=== PATIENT | female | born 1950 | race Caucasian/White ===

== ENCOUNTER 2017-08-16 06:19 | Day surgery (SDC) | payer MEDICARE, OTHER ==
--- NOTE | 2017-08-16 07:22 | PCM.PREANE ---
Preanesthetic Assessment - Anesthesia/Transfusion/Family Hx Anesthesia History: Prior Anesthesia Without Reaction Other Type of Anesthesia Reaction Comment: Denies any known problem in past Family History of Anesthesia Reaction: No Transfusion History: No Prior Transfusion(s) - Review of Systems General: No Symptoms Pulmonary: No Symptoms Cardiovascular: No Symptoms Gastrointestinal: No Symptoms Neurological: No Symptoms Other: Reports: None - Physical Assessment NPO Status Date: 08/15/17 NPO Status Time: 22:00 O2 Sat by Pulse Oximetry: 95 Respiratory Rate: 16 Vital Signs: Last Vital Signs Temp 36.3 C 08/16/17 06:30 Pulse 67 08/16/17 06:30 Resp 16 08/16/17 06:30 BP 150/76 H 08/16/17 06:30 Pulse Ox 95 08/16/17 06:30 Height: 1.63 m Weight: 73.936 kg ASA Class: 1 Mental Status: Alert & Oriented x3 Airway Class: Mallampati = 1 ROM/Head Extension: Full Lungs: Clear to Auscultation, Normal Respiratory Effort Cardiovascular: Regular Rate, Regular Rhythm - Allergies Allergies/Adverse Reactions: Allergies Allergy/AdvReac Type Severity Reaction Status Date / Time Sulfa (Sulfonamide Allergy Hives Verified 08/14/17 12:46 Antibiotics) sulfamethoxazole Allergy Hives Verified 08/14/17 12:46 [From Bactrim] trimethoprim [From Bactrim] Allergy Hives Verified 08/14/17 12:46 Bandaids Allergy Itching Uncoded 01/28/15 10:07 Dairy Allergy Indigestion Uncoded 01/28/15 10:07 Latex Allergy Itching Uncoded 01/28/15 10:07 - Anesthesia Plan Pre-Op Medication Ordered: None - Acknowledgements Anesthesia Type Planned: MAC Pt an Appropriate Candidate for the Planned Anesthesia: Yes Alternatives and Risks of Anesthesia Discussed w Pt/Guardian: Yes Pt/Guardian Understands and Agrees with Anesthesia Plan: Yes PreAnesthesia Questionnaire Other HEENT History: wears glasses 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 OB/BYN History: Laparoscopic procedure for ovarian Cyst Other Musculoskeletal History: Current pain to Left Knee - Past Surgical History Female Surgical History: Reports: Other (See Below) Other Female Surgeries/Procedures: laparoscopic drainage of ovarian abscess Musculoskeletal Surgical History: Reports: Arthroscopic Knee - SUBSTANCE USE Smoking Status *Q: Never Smoker Recreational Drug Use History: No - HOME MEDS Home Medications: Home Meds Multivitamin [Multi-Vitamin Daily] 1 tab PO DAILY 01/28/15 [History] - CURRENT (IN HOUSE) MEDS Current Meds: Current Medications Bupivacaine HCl/Epinephrine Bitart (Marcaine 0.25%/Epinephrine 1:200,000) 10 ml INJECT ONETIME ONE Stop: 08/16/17 08:01 Cefazolin Sodium/Dextrose 2 gm (/ Premix) 50 mls @ 100 mls/hr IV ONETIME ONE Stop: 08/16/17 08:29 Lactated Ringer's (Ringers, Lactated) 1,000 mls @ 125 mls/hr IV ASDIRECTED [facility] Tramadol HCl (Ultram) 50 mg PO Q4H PRN PRN Reason: Pain
[2017-08-16] MEDS ORDERED: Lidocaine 2% 5 ML SDV ONE (07:24)
[2017-08-16] MEDS ORDERED: Midazolam 1 MG/ML 2 ML SDV ONE (07:24)
[2017-08-16] MEDS ORDERED: Propofol 200 MG/20 ML SDV ONE (07:24)
[2017-08-16] MEDS ORDERED: fentaNYL 100 MCG/2 ML SDV ONE (07:24)
[2017-08-16] MEDS ORDERED: Tetracaine 0.5% Ophth Soln 15 ML Bottle ONE (07:28)
[2017-08-16] MEDS ORDERED: Bupivacaine 25%/EPINEPHrine/PF 30 ML ONE (07:28)
[2017-08-16] MEDS ORDERED: Ondansetron 4 MG/2 ML SDV ONE (07:28)
[2017-08-16] MEDS ORDERED: Dexamethasone/Tobramycin 0.1-0.3% Ophth Oint 3.5 GM Tube ONE (07:28)
[2017-08-16] MEDS ORDERED: ceFAZolin 2 GM in Premix Bag 1 BAG IV ONE (08:00)
[2017-08-16] MEDS ORDERED: Lactated Ringers 1,000 ML IV SCH (08:00)
[2017-08-16] MEDS ORDERED: traMADol 50 MG Tab PO PRN (08:00)
[2017-08-16] MEDS ORDERED: Bupivacaine 0.25%/EPINEPHrine 1:200,000 10 ML SDV INJECT ONE (08:00)
--- NOTE | 2017-08-16 10:43 | PCM.POSTAN ---
POST ANESTHESIA ASSESSMENT - MENTAL STATUS Mental Status: Alert, Oriented - RESPIRATORY Respiratory Status: Respiratory Rate WNL, Airway Patent, O2 Saturation Stable - CARDIOVASCULAR CV Status: Pulse Rate WNL, Blood Pressure Stable - GASTROINTESTINAL GI Status: No Symptoms - POST OP HYDRATION Hydration Status: Adequate & Stable
--- NOTE | 2017-08-16 10:44 | PCM48HPAN ---
Post Anesthesia Note - EVALUATION WITHIN 48HRS OF ANESTHETIC Vital Signs in Normal Range: Yes Patient Participated in Evaluation: Yes Respiratory Function Stable: Yes Airway Patent: Yes Cardiovascular Function Stable: Yes Hydration Status Stable: Yes Pain Control Satisfactory: Yes Nausea and Vomiting Control Satisfactory: Yes Mental Status Recovered: Yes Resp Rate: 11
[2017-08-16 10:51] VITALS: BP 131/73
--- NOTE | 2017-08-16 17:14 | PCM.OPNOTE ---
- General Post-Op/Procedure Note Date of Surgery/Procedure: 08/16/17 Operative Procedure(s): bilateral upper lid blepahroplasty for excess skin Pre Op Diagnosis: dermatochalasis bilateral Post-Op Diagnosis: Same Anesthesia Technique: Local, MAC Primary Surgeon: Yamilka Morris Walnut Dehydrator Operator: Verito Vick Complications: None Condition: Good Free Text/Narrative:: Intake & Output 08/16/17 08/16/17 08/16/17 07:59 15:59 23:59 Intake Total 800 Balance 800
--- NOTE | 2017-08-17 17:29 | OR ---
SURGEON: KARLENE JOSHUA MD DATE OF PROCEDURE: 08/16/2017 PREOPERATIVE DIAGNOSIS: Bilateral upper lid dermatochalasis. POSTOPERATIVE DIAGNOSIS: Bilateral upper lid dermatochalasis causing visual obstruction. PROCEDURE: Bilateral upper lid blepharoplasty for excess skin weighing down lids. STUDENT UNION CONSULTANT: OMID Loredo REASON STUDENT UNION CONSULTANT WAS NECESSARY: Reason for pastry assistant is prepping, draping, and closure assistance. ANESTHESIA: Local MAC. INDICATIONS: Ms. Ojeda is a 66-year-old female who has excess upper eyelid skin that is causing visual obstruction with a decreased MRD and visual compromise demonstrated on photos and visual field testing. Risks and benefits of bilateral upper lid blepharoplasty for excess skin were discussed and she was in agreement to proceed. Risks were including, but not limited to, bleeding, infection, damage to underlying or overlying structures, possible need for future interventions, possible scarring. PROCEDURE IN DETAIL: After informed consent was obtained and placed on the chart, the patient was brought to the operating theater and laid in supine position. After adequate local MAC anesthesia was obtained, the area was prepped and draped and a time- out was completed to confirm side and site. The area was then marked and confirmed. Standard excision using calipers were measured. Once adequately marked, the area was anesthetized with 0.25% Marcaine with epinephrine in a field block. Attention was then paid to removal of the skin and meticulous hemostasis using Bovie electrocautery. Once adequately excised, the wounds were then closed with a single deep Monocryl stitch and a running 6-0 Prolene for the skin. The patient tolerated the procedure well. All counts and needles were correct at the end of the case. Steri-Strips were used to secure the suture ends in place. FOLLOWUP INSTRUCTIONS: The patient will see us in 1 week, sooner if any problems, questions, or concerns. She was given a prescription for pain control, but otherwise will use [id number] medications. HEGGTHE / HENNAL /[id number]
== END 2017-08-16 10:10 | disposition home or self-care (01) ==
LOC: MW.SDS 06:19
PROVIDERS: ATTEND Plastic Surgery
DX: H02.831 Dermatochalasis of right upper eyelid (principal); H02.834 Dermatochalasis of left upper eyelid; Z88.2 Allergy status to sulfonamides; Z88.8 Allergy status to other drugs, medicaments and biological substances; Z91.011 Allergy to milk products; Z79.899 Other long term (current) drug therapy
CPT/HCPCS: 15823; A9270; J2250; J2405; J3010; 00103; J2704

== ENCOUNTER 2020-11-12 11:34 | Emergency (ER) | payer MEDICARE, OTHER ==
--- NOTE | 2020-11-12 11:40 | EDM.PDOC ---
ED HPI GENERAL MEDICAL PROBLEM - General Stated Complaint: BLOOD PRESSURE Time Seen by Provider: 11/12/20 11:35 Source of Information: Reports: Patient History Limitations: Reports: No Limitations - History of Present Illness INITIAL COMMENTS - FREE TEXT/NARRATIVE: 70-year-old female presents for hypertension. Patient is not currently on any antihypertensives. She states that last night she developed a mild bilateral frontal headache. She took an Advil cold and sinus and went to bed. She woke up this morning and noticed headache was worsening. Took another advil cold/sinus. It is gradually worsened throughout the morning. It is not the worst headache of her life. It is not associated with vision changes, shortness of breath, chest pain, one-sided weakness, word finding difficulty, facial droop. She has had some nausea without vomiting. She took her blood pressure and noted it to be elevated with a systolic in the 180s which is abnormal for her prompting her to seek medical attention. 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 ED EXAM, GENERAL - Physical Exam Exam: See Below Exam Limited By: No Limitations General Appearance: Alert, WD/WN, No Apparent Distress Eye Exam: Bilateral Eye: EOMI, PERRL Throat/Mouth: Normal Voice, No Airway Compromise Head: Atraumatic, Normocephalic Neck: Normal Inspection Respiratory/Chest: No Respiratory Distress, Lungs Clear, Normal Breath Sounds, No Accessory Muscle Use Cardiovascular: Normal Peripheral Pulses, Regular Rate, Rhythm, No Edema Extremities: Normal Inspection Neurological: Alert, Oriented, CN II-XII Intact, Normal Cognition, No Motor/Sensory Deficits, Other (normal [id number] b/l) Psychiatric: Normal Affect, Normal Mood Skin Exam: Warm, Dry, Intact, Normal Color #1 Interpretation EKG Date: 11/12/20 Time: 11:34 Rhythm: NSR Rate (Beats/Min): 89 Thor: Normal P-Wave: Present QRS: Normal ST-T: Normal QT: Normal AR/PQ Interval: 224 Comparison: NA - No Prior EKG EKG Interpretation Comments: no overt ischemic changes Course - Vital Signs Last Recorded V/S: Last Vital Signs Temp 97 F 11/12/20 11:46 Pulse 96 11/12/20 11:46 Resp 16 11/12/20 11:46 BP 190/111 H 11/12/20 11:46 Pulse Ox 95 11/12/20 11:46 - Orders/Labs/Meds Orders: Active Orders 24 hr Category Date Time Status EKG Documentation Completion [RC] STAT Care 11/12/20 11:50 Active Ang Head [CT] Stat Exams 11/12/20 11:51 Taken Ang Neck [CT] Stat Exams 11/12/20 11:51 Taken Head wo Cont [CT] Stat Exams 11/12/20 11:51 Taken Sodium Chloride 0.9% [Saline Flush] Med 11/12/20 11:50 Active 10 ml FLUSH ASDIRECTED PRN Sodium Chloride 0.9% [Saline Flush] Med 11/12/20 11:50 Active 2.5 ml FLUSH ASDIRECTED PRN Saline Lock Insert [OM.PC] Stat Oth 11/12/20 11:50 Ordered Medication Orders Sodium Chloride (Sodium Chloride 0.9% 10 Ml Syringe) 10 ml FLUSH ASDIRECTED PRN PRN Reason: Keep Vein Open Last Admin: 11/12/20 12:01 Dose: 10 ml Documented by: [facility] [place], [place] Sodium Chloride (Sodium Chloride 0.9% 2.5 Ml Syringe) 2.5 ml FLUSH ASDIRECTED PRN PRN Reason: Keep Vein Open Last Admin: 11/12/20 12:01 Dose: 2.5 ml Documented by: ASHWINI Labs: Laboratory Tests 11/12/20 11/12/20 Range/Units 11:45 11:45 WBC 15.36 H (4.0-11.0) K/uL RBC 4.75 (4.30-5.90) M/uL Hgb 14.2 (12.0-16.0) g/dL Hct 40.7 (36.0-46.0) % MCV 85.7 (80.0-98.0) fL MCH 29.9 (27.0-32.0) pg MCHC 34.9 (31.0-37.0) g/dL RDW Std Deviation 42.6 (28.0-62.0) fl RDW Coeff of Shay 14 (11.0-15.0) % Plt Count 253 (150-400) K/uL MPV 9.80 (7.40-12.00) fL Neut % (Auto) 93.2 H (48.0-80.0) % Lymph % (Auto) 4.8 L (16.0-40.0) % [place] % (Auto) 2.0 (0.0-15.0) % Eos % (Auto) 0.0 (0.0-7.0) % Baso % (Auto) 0.0 (0.0-1.5) % Neut # (Auto) 14.3 H (1.4-5.7) K/uL Lymph # (Auto) 0.7 (0.6-2.4) K/uL [place] # (Auto) 0.3 (0.0-0.8) K/uL Eos # (Auto) 0.0 (0.0-0.7) K/uL Baso # (Auto) 0.0 (0.0-0.1) K/uL Nucleated RBC % 0.0 /100WBC Nucleated RBCs # 0 K/uL Sodium 130 L (136-145) mmol/L Potassium 3.9 (3.5-5.1) mmol/L Chloride 95 L (98-107) mmol/L Carbon Dioxide 24.8 (21.0-32.0) mmol/L BUN 29 H (7.0-18.0) mg/dL Creatinine 0.8 (0.6-1.0) mg/dL Est Cr Clr Drug Dosing 55.70 mL/min Estimated GFR (MDRD) > 60.0 ml/min Glucose 158 H (74-106) mg/dL Calcium 9.3 (8.5-10.1) mg/dL Total Bilirubin 0.6 (0.2-1.0) mg/dL AST 21 (15-37) IU/L ALT 24 (14-63) IU/L Alkaline Phosphatase 147 H (46-116) U/L Troponin I < 0.050 (0.000-0.056) ng/mL Total Protein 7.7 (6.4-8.2) g/dL Albumin 3.8 (3.4-5.0) g/dL Globulin 3.9 (2.6-4.0) g/dL Albumin/Globulin Ratio 1.0 (0.9-1.6) Meds: Medications Generic Name Dose Route Start Last Admin Trade Name Warrenq PRN Reason Stop Dose Admin Sodium Chloride 10 ml 11/12/20 11:50 11/12/20 12:01 Sodium Chloride 0.9% 10 Ml Syringe FLUSH 10 ml ASDIRECTED PRN Administration Keep Vein Open Sodium Chloride 2.5 ml 11/12/20 11:50 11/12/20 12:01 Sodium Chloride 0.9% 2.5 Ml Syringe FLUSH 2.5 ml ASDIRECTED PRN Administration Keep Vein Open Discontinued Medications Generic Name Dose Route Start Last Admin Trade Name Anusha PRN Reason Stop Dose Admin Acetaminophen 1,000 mg 11/12/20 11:52 11/12/20 12:01 Acetaminophen 500 Mg Tab PO 11/12/20 11:53 1,000 mg ONETIME ONE Administration Diphenhydramine HCl 50 mg 11/12/20 11:50 11/12/20 12:01 Diphenhydramine 50 Mg/Ml Sdv IVPUSH 11/12/20 11:51 50 mg ONETIME ONE Administration Metoclopramide HCl 10 mg 11/12/20 11:50 11/12/20 12:01 Metoclopramide 10 Mg/2 Ml Sdv IVPUSH 11/12/20 11:51 10 mg ONETIME ONE Administration - Re-Assessments/Exams Free Text/Narrative Re-Assessment/Exam: 11/12/20 11:54 We will get basic labs. Will get CT imaging of the head as well as CTA of the head and neck. Will give medication to treat headache. Will recheck blood pressure and consider antihypertensives. 1413: CT imaging of head/neck are unremarkable. BP is now 141/79 after treating ROBERTS. Will f/u labs and disposition. 1423: Labs grossly unremarkable. Will discharge patient with PMD follow-up for further work-up and management. Departure - Departure Time of Disposition: 14:23 Disposition: Home, Self-Care 01 Condition: Good Clinical Impression: Headache Qualifiers: Headache type: unspecified Headache chronicity pattern: acute headache Intractability: not intractable Qualified Code(s): R51.9 - Headache, unspecified Hypertension Qualifiers: Hypertension type: unspecified Qualified Code(s): I10 - Essential (primary) hypertension - Discharge Information Instructions: Hypertension, Adult, General Headache Without Cause, [id number] Referrals: Twan Arguello MD [Primary Care Provider] - Additional Instructions: Your labs are grossly unremarkable. Your CT imaging of your head is unremarkable. I recommend checking your blood pressure regularly and following up with your primary care physician to discuss whether or not you need to be on any antihypertensive medications. If you develop worst headache of your life, chest pain, difficulty breathing, slurred speech, one-sided weakness or any other new or concerning symptoms you are encouraged to return to the emergency department for reassessment. The following information is given to patients seen in the emergency department who are being discharged to home. This information is to outline your options for follow-up care. We provide all patients seen in our emergency department with a follow-up referral. The need for follow-up, as well as the timing and circumstances, are variable depending upon the specifics of your emergency department visit. If you don't have a primary care physician on staff, we will provide you with a referral. We always advise you to contact your personal physician following an emergency department visit to inform them of the circumstance of the visit and for follow-up with them and/or the need for any referrals to a consulting specialist. The emergency department will also refer you to a specialist when appropriate. This referral assures that you have the opportunity for follow-up care with a sp ecialist. All of these measure are taken in an effort to provide you with optimal care, which includes your follow-up. Under all circumstances we always encourage you to contact your private physicia n who remains a resource for coordinating your care. When calling for follow-up care, please make the office aware that this follow-up is from your recent emergency room visit. If for any reason you are refused follow-up, please contact the [facility] Emergency Department at and asked to speak to the emergency department charge nurse. Please follow up with your primary care physician. If you do not have a primary care physician, see below: [facility] [address] [place] [address] [id number] My [facility] [address] [place] [address] [facility] [address] [place] [id number] Sepsis Event Note (ED) - Focused Exam Vital Signs: Vital Signs Temp Pulse Resp BP Pulse Ox 11/12/20 11:46 97 F 96 16 190/111 H 95 - My Orders Last 24 Hours: My Active Orders 11/12/20 11:50 EKG Documentation Completion [RC] STAT Sodium Chloride 0.9% [Saline Flush] 10 ml FLUSH ASDIRECTED PRN Sodium Chloride 0.9% [Saline Flush] 2.5 ml FLUSH ASDIRECTED PRN Saline Lock Insert [OM.PC] Stat 11/12/20 11:51 Ang Head [CT] Stat Ang Neck [CT] Stat Head wo Cont [CT] Stat - Assessment/Plan Last 24 Hours: My Active Orders 11/12/20 11:50 EKG Documentation Completion [RC] STAT Sodium Chloride 0.9% [Saline Flush] 10 ml FLUSH ASDIRECTED PRN Sodium Chloride 0.9% [Saline Flush] 2.5 ml FLUSH ASDIRECTED PRN Saline Lock Insert [OM.PC] Stat 11/12/20 11:51 Ang Head [CT] Stat Ang Neck [CT] Stat Head wo Cont [CT] Stat
[2020-11-12] MEDS ORDERED: Metoclopramide 10 MG/2 ML SDV IVPUSH ONE (11:50)
[2020-11-12] MEDS ORDERED: Sodium Chloride 0.9% 2.5 ML Syringe FLUSH PRN (11:50)
[2020-11-12] MEDS ORDERED: Sodium Chloride 0.9% 10 ML Syringe FLUSH PRN (11:50)
[2020-11-12] MEDS ORDERED: diphenhydrAMINE 50 MG/ML SDV IVPUSH ONE (11:50)
[2020-11-12] MEDS ORDERED: Acetaminophen 500 MG Tab PO ONE (11:52)
[2020-11-12 13:14] LABS: BLOOD UREA NITROGEN,BUN 29 mg/dL (7.0-18.0); CARBON DIOXIDE,CO2 24.8 mmol/L (21.0-32.0); CHLORIDE,CL 95 mmol/L (98-107); GLUCOSE RANDOM 158 mg/dL (74-106); POTASSIUM,K 3.9 mmol/L (3.5-5.1); SODIUM,NA 130 mmol/L (136-145)
[2020-11-12 14:58] VITALS: BP 141/78; PULSE 75
[2020-11-12] MEDS ORDERED: Iopamidol 755 MG/ML 500 ML Multipack Bottle IVPUSH STA (15:45)
== END 2020-11-12 15:06 | disposition home or self-care (01) ==
LOC: MW.ED 11:34
DX: I10 Essential (primary) hypertension (principal); Z88.2 Allergy status to sulfonamides; Z88.1 Allergy status to other antibiotic agents; Z91.048 Other nonmedicinal substance allergy status; Z91.011 Allergy to milk products; Z91.040 Latex allergy status; Z79.899 Other long term (current) drug therapy
CPT/HCPCS: 36415; 70450; 70496; 70498; 80053; 84484; 85025; 93005; 96374; 96375; 99284; A9270; J1200; J2765; Q9967

== ENCOUNTER 2021-03-23 07:34 | Emergency (ER) | payer MEDICARE, OTHER ==
--- NOTE | 2021-03-23 07:35 | EDM.PDOC ---
ED HPI GENERAL MEDICAL PROBLEM - General Stated Complaint: COVID POSITIVE Time Seen by Provider: 03/23/21 07:34 Source of Information: Reports: Patient History Limitations: Reports: No Limitations - History of Present Illness INITIAL COMMENTS - FREE TEXT/NARRATIVE: 69-year-old female presents with known Covid diagnosis. Patient states that she has been feeling unwell for about 1 week. Yesterday she went to an outpatient clinic and was diagnosed with COVID-19. She has been monitoring her oxygen levels and noted last night her oxygen dipped to 90% on room air. She actually has access to oxygen at home from a family member but does not always need it so she was using this as needed at home. She denies any chest pain or shortness of breath. She does note a cough. She notes body aches. She notes feeling lightheaded. This is worse with ambulation. She has not received any treatment for COVID-19 at this point. She is unvaccinated against COVID-19. - Related Data Allergies Allergy/AdvReac Type Severity Reaction Status Date / Time Sulfa (Sulfonamide Allergy Hives Verified 03/23/21 07:47 Antibiotics) sulfamethoxazole Allergy Hives Verified 03/23/21 07:47 [From Bactrim] trimethoprim [From Bactrim] Allergy Hives Verified 03/23/21 07:47 Bandaids Allergy Itching Uncoded 03/23/21 07:47 Dairy Allergy Indigestion Uncoded 03/23/21 07:47 Latex Allergy Itching Uncoded 03/23/21 07:47 Home Meds: Home Meds Meloxicam 15 mg PO DAILY PRN 11/12/20 [History] Multivitamin [Multi-Vitamin Daily] 1 tab PO DAILY 03/23/21 [History] Past Medical History - Past Health History Medical/Surgical History: Denies Medical/Surgical History Other HEENT History: wears glasses FLOOR SURFACER History: Reports: Other FLOOR SURFACER History: Laparoscopic procedure for ovarian Cyst Other Musculoskeletal History: Current pain to Left Knee - Infectious Disease History Infectious Disease History: Reports: Chicken Pox, Measles, Mumps - Past Surgical History Female Surgical History: Reports: Other (See Below) Other Female Surgeries/Procedures: laparoscopic drainage of ovarian abscess Musculoskeletal Surgical History: Reports: Arthroscopic Knee Social & Family History - Caffeine Use Caffeine Use: Reports: None ED ROS GENERAL - Review of Systems Review Of Systems: Comprehensive ROS is negative, except as noted in HPI. ED EXAM, GENERAL - Physical Exam Exam: See Below Exam Limited By: No Limitations General Appearance: Alert, WD/WN, No Apparent Distress Ears: Hearing Grossly Normal Throat/Mouth: Normal Voice, No Airway Compromise Head: Atraumatic, Normocephalic Respiratory/Chest: No Respiratory Distress, Lungs Clear, Normal Breath Sounds, No Accessory Muscle Use Cardiovascular: Normal Peripheral Pulses, Regular Rate, Rhythm Extremities: Normal Inspection Neurological: Alert, Normal Cognition, Normal Gait Psychiatric: Normal Affect, Normal Mood Skin Exam: Warm, Dry, Intact, Normal Color Course - Vital Signs Last Recorded V/S: Last Vital Signs Temp 97.2 F 03/23/21 07:48 Pulse 70 03/23/21 08:21 Resp 20 03/23/21 08:21 BP 121/68 03/23/21 08:21 Pulse Ox 90 L 03/23/21 08:21 - Orders/Labs/Meds Orders: Active Orders 24 hr Category Date Time Status CORONAVIRUS COVID-19 EMMETT [MOLEC] Stat Lab 03/23/21 09:24 Received Labs: Laboratory Tests 03/23/21 03/23/21 Range/Units 08:37 08:37 WBC 4.29 (4.0-11.0) K/uL RBC 4.38 (4.30-5.90) M/uL Hgb 12.9 (12.0-16.0) g/dL Hct 37.3 (36.0-46.0) % MCV 85.2 (80.0-98.0) fL MCH 29.5 (27.0-32.0) pg MCHC 34.6 (31.0-37.0) g/dL RDW Std Deviation 43.5 (28.0-62.0) fl RDW Coeff of Shay 14 (11.0-15.0) % Plt Count 117 L (150-400) K/uL MPV 9.50 (7.40-12.00) fL Neut % (Auto) 63.7 (48.0-80.0) % Lymph % (Auto) 21.2 (16.0-40.0) % [place] % (Auto) 14.2 (0.0-15.0) % Eos % (Auto) 0.7 (0.0-7.0) % Baso % (Auto) 0.2 (0.0-1.5) % Neut # (Auto) 2.7 (1.4-5.7) K/uL Lymph # (Auto) 0.9 (0.6-2.4) K/uL [place] # (Auto) 0.6 (0.0-0.8) K/uL Eos # (Auto) 0.0 (0.0-0.7) K/uL Baso # (Auto) 0.0 (0.0-0.1) K/uL Nucleated RBC % 0.0 /100WBC Nucleated RBCs # 0 K/uL Sodium 131 L (136-145) mmol/L Potassium 3.9 (3.5-5.1) mmol/L Chloride 93 L (98-107) mmol/L Carbon Dioxide 29.9 (21.0-32.0) mmol/L BUN 14 (7.0-18.0) mg/dL Creatinine 0.7 (0.6-1.0) mg/dL Est Cr Clr Drug Dosing 63.65 mL/min Estimated GFR (MDRD) > 60.0 ml/min Glucose 115 H (74-106) mg/dL Calcium 8.0 L (8.5-10.1) mg/dL Total Bilirubin 0.5 (0.2-1.0) mg/dL AST 35 (15-37) IU/L ALT 22 (14-63) IU/L Alkaline Phosphatase 95 (46-116) U/L Total Protein 6.6 (6.4-8.2) g/dL Albumin 2.8 L (3.4-5.0) g/dL Globulin 3.8 (2.6-4.0) g/dL Albumin/Globulin Ratio 0.7 L (0.9-1.6) Meds: Medications Discontinued Medications Generic Name Dose Route Start Last Admin Trade Name Freq PRN Reason Stop Dose Admin Acetaminophen 1,000 mg 03/23/21 08:09 03/23/21 08:24 Acetaminophen 500 Mg Tab PO 03/23/21 08:10 1,000 mg ONETIME ONE Administration - Re-Assessments/Exams Free Text/Narrative Re-Assessment/Exam: 03/23/21 08:00 Patient's oxygen saturation ranges from 91 to 94% on room air during my H&P. Will get basic labs and chest x-ray. Anticipate discharge with Regeneron therapy. Risk and benefits of Regeneron therapy including its experimental nature were discussed with patient at length. 03/23/21 09:38 Labs and imaging unremarkable. Will discharge patient with Regeneron therapy. Risk and benefit discussed. Departure - Departure Time of Disposition: 09:38 Disposition: Home, Self-Care 01 Condition: Good Clinical Impression: COVID-19 - Discharge Information Instructions: COVID-19: What to Do If You Are Sick- [facility] [place]NOTE 2[place] (08/19/2020) Referrals: Twan Arguello MD [Primary Care Provider] - Additional Instructions: Your chest x-ray and labs all look good. Unfortunately you are at very high risk of developing severe COVID-19 given your advanced age. Your oxygen saturations are borderline. If you have access to oxygen at home I would encourage you to check your oxygen level regularly and use 2 L nasal cannula oxygen if your oxygen saturation is below 88% on room air. You can also consider using 2 L nasal cannula oxygen at night as patient's oxygen saturations tend to dip at night. If you have worsening shortness of breath or hypoxia, feeling like you to pass out with walking short distances, or chest pain you should come back to the ER for reassessment. We did place you on her schedule for the Regeneron or monoclonal antibody therapy. They should call you later today or tomorrow to set up the appointment for typically tomorrow or the next day. This is an experimental medication that is emergently approved by the FDA for treatment of mild to moderate Covid to prevent progression to severe Covid. The short-term and long-term side effects were not fully understood. Please be aware of this when you receive this medication. The following information is given to patients seen in the emergency department who are being discharged to home. This information is to outline your options for follow-up care. We provide all patients seen in our emergency department with a follow-up referral. The need for follow-up, as well as the timing and circumstances, are variable depending upon the specifics of your emergency department visit. If you don't have a primary care physician on staff, we will provide you with a referral. We always advise you to contact your personal physician following an emergency department visit to inform them of the circumstance of the visit and for follow-up with them and/or the need for any referrals to a consulting specialist. The emergency department will also refer you to a specialist when appropriate. This referral assures that you have the opportunity for follow-up care with a specialist. All of these measure are taken in an effort to provide you with optimal care, which includes your follow-up. Under all circumstances we always encourage you to contact your private physician who remains a resource for coordinating your care. When calling for follow-up care, please make the office aware that this follow-up is from your recent emergency room visit. If for any reason you are refused follow-up, please contact the [facility] Department at and asked to speak to the emergency department charge nurse. Please follow up with your primary care physician. If you do not have a primary care physician, see below: [facility] [address] [place] [address] [id number] [facility] [address] [place] [id number] [facility] [address] [place] [id number] Sepsis Event Note (ED) - Focused Exam Vital Signs: Vital Signs Temp Pulse Resp BP Pulse Ox 03/23/21 08:21 70 20 121/68 90 L 03/23/21 07:48 97.2 F 76 18 125/76 91 L - My Orders Last 24 Hours: My Active Orders 03/23/21 09:24 CORONAVIRUS COVID-19 EMMETT [MOLEC] Stat - Assessment/Plan Last 24 Hours: My Active Orders 03/23/21 09:24 CORONAVIRUS COVID-19 EMMETT [MOLEC] Stat
[2021-03-23] MEDS ORDERED: Acetaminophen 500 MG Tab PO ONE (08:09)
--- NOTE | 2021-03-23 08:42 | CR ---
HISTORY: COVID-19. Shortness of breath. COMPARISON: None. TECHNIQUE: Chest 1 view. FINDINGS: Heart size and pulmonary vasculature are within normal limits. Subtle interstitial type opacities in the right lower and left mid lung zones. There is no pneumothorax/deep sulcus sign. The central airway is normal. The osseous structures are intact. IMPRESSION: 1. Interstitial type opacities are consistent with the history. 2. There is no pleural effusion by plain film. Dictated by Uriel Forman MD @ 03/23/2021 8:41:22 AM (Electronically Signed)
[2021-03-23 09:32] LABS: BLOOD UREA NITROGEN,BUN 14 mg/dL (7.0-18.0); CARBON DIOXIDE,CO2 29.9 mmol/L (21.0-32.0); CHLORIDE,CL 93 mmol/L (98-107); GLUCOSE RANDOM 115 mg/dL (74-106); POTASSIUM,K 3.9 mmol/L (3.5-5.1); SODIUM,NA 131 mmol/L (136-145)
[2021-03-23 10:18] VITALS: BP 137/79; PULSE 68
== END 2021-03-23 10:25 | disposition home or self-care (01) ==
LOC: MW.ED 07:34
DX: U07.1 COVID-19 (principal); Z88.2 Allergy status to sulfonamides; Z88.1 Allergy status to other antibiotic agents; Z91.048 Other nonmedicinal substance allergy status; Z91.011 Allergy to milk products; Z91.040 Latex allergy status
CPT/HCPCS: 36415; 71045; 80053; 85025; 99284; A9270; U0002

== ENCOUNTER 2022-04-25 07:05 | Day surgery (SDC) | payer MEDICARE, OTHER ==
[~2022-04-25 07:05] MED LIST: Lactated Ringers 1,000 ML IV SCH
[2022-04-25] MEDS ORDERED: Propofol 200 MG/20 ML SDV ONE (07:33)
[2022-04-25] MEDS ORDERED: Lidocaine 2% 5 ML SDV ONE (08:44)
[2022-04-25] MEDS ORDERED: Lactated Ringers 1,000 ML IV SCH (09:30)
[2022-04-25 10:15] VITALS: BP 140/69; PULSE 72
== END 2022-04-25 10:05 | disposition home or self-care (01) ==
LOC: MW.SDS 07:05
PROVIDERS: ATTEND Surgery
DX: Z12.11 Encounter for screening for malignant neoplasm of colon (principal); K63.5 Polyp of colon; M17.0 Bilateral primary osteoarthritis of knee; Z91.040 Latex allergy status; Z91.011 Allergy to milk products; Z98.890 Other specified postprocedural states; Z88.2 Allergy status to sulfonamides; Z88.8 Allergy status to other drugs, medicaments and biological substances; Z88.1 Allergy status to other antibiotic agents; Z79.899 Other long term (current) drug therapy
CPT/HCPCS: 45380; J2704; J7120

== ENCOUNTER 2022-06-30 12:08 | Emergency (ER) | payer MEDICARE, OTHER ==
[2022-06-30] MEDS ORDERED: Sodium Chloride 0.9% 20 ML SDV IV PRN (12:17)
[2022-06-30] MEDS ORDERED: Sodium Chloride 0.9% 2.5 ML Syringe FLUSH PRN (12:17)
[2022-06-30] MEDS ORDERED: Sodium Chloride 0.9% 10 ML Syringe FLUSH PRN (12:17)
[2022-06-30 12:57] LABS: CARBON DIOXIDE,CO2 27.6 mmol/L (21.0-32.0); POTASSIUM,K 4.2 mmol/L (3.5-5.1)
[2022-06-30 13:20] LABS: CORONAVIRUS COVID-19 NAA NEGATIVE (NEGATIVE); INFLUENZA A NAA NEGATIVE (NEGATIVE); INFLUENZA B NAA NEGATIVE (NEGATIVE)
[2022-06-30] MEDS ORDERED: Iopamidol 755 MG/ML 500 ML Multipack Bottle IVPUSH ONE (13:52)
[2022-06-30] MEDS ORDERED: cefTRIAXone 1 GM in Sodium Chloride 0.9% 50 ML IV ONE (14:49)
[2022-06-30] MEDS ORDERED: Azithromycin 500 MG in Sodium Chloride 0.9% 250 ML IV ONE (14:50)
[2022-06-30] MEDS ORDERED: Heparin Sodium/0.45% NaCl 500 ML IV SCH (15:30)
[2022-06-30] MEDS ORDERED: Heparin Sodium 5,000 Units/ML Vial IVPUSH ONE (15:30)
[2022-06-30] MEDS ORDERED: Heparin Sodium 5,000 Units/ML Vial SUBCUT ONE (15:30)
[2022-06-30] MEDS ORDERED: Morphine 2 MG/ML SYRINGE IVPUSH PRN (16:18)
[2022-06-30] MEDS ORDERED: Ondansetron 4 MG/2 ML SDV IVPUSH ONE (16:39)
[2022-06-30] MEDS ORDERED: Pantoprazole 40 MG in Sodium Chloride 0.9% 10 ML IVPUSH SCH (17:00)
[2022-06-30 21:30] VITALS: BP 148/76; PULSE 79
== END 2022-06-30 23:09 ==
LOC: MW.ED 12:08 → MW.MS 15:29 → UNDOADMIN 15:29 → MW.MS 16:48 → UNDODISIN 17:00
DX: R06.02 Shortness of breath (principal); M19.90 Unspecified osteoarthritis, unspecified site; Z88.2 Allergy status to sulfonamides; Z88.1 Allergy status to other antibiotic agents; Z91.011 Allergy to milk products; Z91.040 Latex allergy status; Z91.09 Other allergy status, other than to drugs and biological substances; Z79.899 Other long term (current) drug therapy; Z86.16 Personal history of COVID-19; Z86.19 Personal history of other infectious and parasitic diseases; Z98.49 Cataract extraction status, unspecified eye; Z20.822 Contact with and (suspected) exposure to COVID-19
CPT/HCPCS: 0240U; 36415; 36600; 71045; 71275; 80053; 81003; 82803; 82947; 83605; 83880; 84484; 85025; 85027; 85610; 85730; 86850; 86900; 86901; 87040; 93005; 93970; 96365; 96375; 96376; 99285; C9113; J0456; J0696; J1644; J2270; J2405; J3490; J7050; Q9967

== ENCOUNTER 2024-04-26 09:24 | Emergency (ER) | payer MEDICARE ==
[2024-04-26 10:00] LABS: BASOPHILS ABSOLUTE AUTO 0.04 K/uL (0.00-0.20); BASOPHILS PERCENT AUTO 0.8 % (0.0-1.0); EOSINOPHILS ABSOLUTE AUTO 0.14 K/uL (0.00-0.45); EOSINOPHILS PERCENT AUTO 2.8 % (0.0-6.0); HEMATOCRIT 39.5 % (37.0-47.0); HEMOGLOBIN 13.6 g/dL (12.0-16.0); IMMATURE GRAN ABSOLUTE AUTO 0.04 K/uL (0.00-0.05); IMMATURE GRAN PERCENT AUTO 0.8 % (0.0-0.4); LYMPHOCYTES ABSOLUTE AUTO 1.52 K/uL (1.00-4.80); LYMPHOCYTES PERCENT AUTO 30.3 % (24.0-44.0); MEAN CORPUSCULAR HEMOGLOBIN 29.8 pg (28.0-32.0); MEAN CORPUSCULAR HGB CONC 34.4 g/dL (32.0-36.0); MEAN CORPUSCULAR VOLUME 86.4 fL (83.0-99.0); MONOCYTES ABSOLUTE AUTO 0.36 K/uL (0.00-0.80); MONOCYTES PERCENT AUTO 7.2 % (0.0-8.0); NEUTROPHILS ABSOLUTE AUTO 2.91 K/uL (1.80-7.70); NEUTROPHILS PERCENT AUTO 58.1 % (41.0-71.0); PLATELET COUNT,PLT 83 K/uL (150-400); RED BLOOD CELL COUNT 4.57 M/uL (4.10-5.30); WHITE BLOOD CELL COUNT,WBC 5.01 K/uL (3.9-11.3)
[2024-04-26 10:14] LABS: A/G RATIO 0.9 (0.9-1.6); ALBUMIN 3.5 g/dL (3.4-5.0); BILIRUBIN TOTAL 0.6 mg/dL (0.2-1.0); CALCIUM 8.7 mg/dL (8.5-10.1); CARBON DIOXIDE,CO2 27.6 mmol/L (21.0-32.0); CREATININE 0.8 mg/dL (0.6-1.0); EST CRCL DRUG DOSING (CG) 51.03 mL/min; PROTEIN TOTAL,TP 7.2 g/dL (6.4-8.2)
[2024-04-26 11:04] LABS: BILIRUBIN,URINE NEGATIVE (NEGATIVE); COLOR,URINE YELLOW; GLUCOSE,URINE NEGATIVE (NEGATIVE); KETONES,URINE NEGATIVE (NEGATIVE); LEUKOCYTE ESTERASE,URINE SMALL (NEGATIVE); NITRITE,URINE NEGATIVE (NEGATIVE); OCCULT BLOOD,URINE TRACE-INTACT (NEGATIVE); PROTEIN,URINE NEGATIVE (NEGATIVE); UROBILINOGEN,URINE 0.2 EU/dL (<2.0)
[2024-04-26 11:05] LABS: APPEARANCE,URINE CLOUDY
[2024-04-26 11:19] LABS: AMORPHOUS SEDIMENT,URINE MODERATE (NEGATIVE); BACTERIA,URINE 1+ (NEGATIVE); MUCUS,URINE NOT SEEN (NONE-MOD); SQUAMOUS EPITHELIAL CELLS,UR OCCASIONAL
[2024-04-26] MEDS: cefTRIAXone 1 GM in Sodium Chloride 0.9% 50 ML IV SCH (12:31)
[2024-04-26] MEDS: Aspirin 325 MG Tab PO ONE (12:32)
[2024-04-26] MEDS: Iopamidol 755 MG/ML 500 ML Multipack Bottle IVPUSH STA (13:11)
[2024-04-26] MEDS: Clopidogrel 75 MG Tab PO ONE (15:10)
[2024-04-26 16:56] VITALS: BP 144/75; PULSE 61
== END 2024-04-26 16:52 ==
LOC: MW.ED 09:24
DX: I63.531 Cerebral infarction due to unspecified occlusion or stenosis of right posterior cerebral artery (principal); I10 Essential (primary) hypertension; Z79.899 Other long term (current) drug therapy; Z88.2 Allergy status to sulfonamides; Z91.011 Allergy to milk products; Z91.040 Latex allergy status; Z91.048 Other nonmedicinal substance allergy status
CPT/HCPCS: 36415; 70450; 70496; 70498; 80053; 81001; 82947; 85025; 87086; 93005; 96365; 99285; A9270; J0696; J3490; Q9967; 87088; 87186